=== PATIENT | male | born 1975 | race Caucasian/White ===

== ENCOUNTER 2017-09-12 08:31 | Emergency (ER) | payer OTHER ==
[~2017-09-12] VITALS: Ht 172.7 cm; Wt 72.0 kg
[2017-09-12 08:42] VITALS: TEMP 36.6; Ht 172.7 cm; Wt 72.0 kg
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
[2017-09-12] MEDS ORDERED: HYDROCODONE/ACETAMIN 5/325MG TAB PO STA (10:18)
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
[2017-09-12 11:18] VITALS: BP 144/93; PULSE 98; O2SAT 95
== END 2017-09-12 11:19 | disposition home or self-care (01) ==
LOC: EDBD 08:31 → C.EDA 08:34
DX: S52.602A Unspecified fracture of lower end of left ulna, initial encounter for closed fracture (principal); S00.412A Abrasion of left ear, initial encounter; S00.03XA Contusion of scalp, initial encounter; R07.89 Other chest pain; Y04.8XXA Assault by other bodily force, initial encounter; Y92.89 Other specified places as the place of occurrence of the external cause